=== PATIENT | male | born 1955 | race Caucasian/White ===

== ENCOUNTER 2018-10-08 20:17 | Emergency (ER) | payer BC ==
[2018-10-08] MEDS ORDERED: Sodium Chloride 0.9% 1,000 ML IV ONE ×2 (20:35→21:12)
[2018-10-08] MEDS ORDERED: Sodium Chloride 0.9% 10 ML Syringe FLUSH PRN (20:35)
--- NOTE | 2018-10-08 21:01 | EDM.PDOC ---
ED HPI GENERAL MEDICAL PROBLEM - General Stated Complaint: DIZZY, BACK CRAMPS Time Seen by Provider: 10/08/18 20:34 Source of Information: Reports: Patient History Limitations: Reports: No Limitations - History of Present Illness INITIAL COMMENTS - FREE TEXT/NARRATIVE: Patient is a 62-year-old gentleman who presents to the emergency department this evening with a complaint of dizziness, body aches, muscle cramping, and nausea. Patient states that he was out in the field all day and at approximately 1730 he was in an air-conditioned tractor and developed nausea, dizziness and upper and lower extremity muscle cramping. Patient stated he had difficulty ambulating so decided to present to ER. Patient states he did not consume a lot of liquids during the day. Patient denies chest pain, shortness of breath, abdominal pain, fall or trauma, blurry vision, headache, history of heat exhaustion or heat stroke, or fever. Onset: Today Duration: Hour(s): Location: Reports: Generalized Quality: Reports: Other (Muscle cramping) Severity: Mild Improves with: Reports: None Worsens with: Reports: Movement Context: Reports: Activity. Denies: Trauma Associated Symptoms: Reports: Nausea/Vomiting, Other (Dizziness) - Related Data Allergies Allergy/AdvReac Type Severity Reaction Status Date / Time No Known Drug Allergies Allergy Cannot Verified 10/08/18 22:10 Remember ED ROS GENERAL - Review of Systems Review Of Systems: ROS reveals no pertinent complaints other than HPI. Constitutional: Reports: No Symptoms HEENT: Reports: No Symptoms Respiratory: Reports: No Symptoms Cardiovascular: Reports: No Symptoms Endocrine: Reports: No Symptoms GI/Abdominal: Reports: Nausea. Denies: Abdominal Pain, Vomiting : Reports: No Symptoms Musculoskeletal: Reports: Arm Pain, Leg Pain Skin: Reports: No Symptoms Neurological: Reports: No Symptoms Psychiatric: Reports: No Symptoms Hematologic/Lymphatic: Reports: No Symptoms ED EXAM, GENERAL - Physical Exam Exam: See Below Exam Limited By: No Limitations General Appearance: Alert, WD/WN, No Apparent Distress Eye Exam: Bilateral Eye: Normal Inspection Nose: Normal Inspection, Normal Mucosa, No Blood Throat/Mouth: Normal Inspection, Normal Oropharynx, No Airway Compromise Head: Atraumatic, Normocephalic Neck: Normal Inspection, Supple, Non-Tender, Full Range of Motion Respiratory/Chest: No Respiratory Distress, Lungs Clear, Normal Breath Sounds, No Accessory Muscle Use, Chest Non-Tender Cardiovascular: Normal Peripheral Pulses, Regular Rate, Rhythm, No Murmur GI/Abdominal: Normal Bowel Sounds, Soft, Non-Tender, No Organomegaly, No Distention, No Abnormal Bruit, No Mass Back Exam: Normal Inspection. No: CVA Tenderness (L), CVA Tenderness (R) Extremities: Normal Inspection, No Pedal Edema Neurological: Alert, Oriented, CN II-XII Intact, Normal Cognition, No Motor/ Sensory Deficits Psychiatric: Normal Affect, Normal Mood Skin Exam: Warm, Dry, Intact, Normal Color, No Rash Lymphatic: No Adenopathy Course - Vital Signs Last Recorded V/S: Last Vital Signs Temp 98.1 F 10/08/18 20:17 Pulse 87 10/08/18 20:17 Resp 16 10/08/18 20:17 BP 164/78 H 10/08/18 20:17 Pulse Ox 94 L 10/08/18 20:17 - Orders/Labs/Meds Orders: Active Orders 24 hr Category Date Time Status Peripheral IV Care [RC] . DIRECTED Care 10/08/18 20:35 Active Sodium Chloride 0.9% @ 999 MLS/HR (1000ml) Med 10/08/18 21:12 Ordered Sodium Chloride 0.9% [Normal Saline] 1,000 ml IV .BOLUS Sodium Chloride 0.9% [Saline Flush] Med 10/08/18 20:35 Ordered 10 ml FLUSH Q8HR PRN Peripheral IV Insertion Adult [OM.PC] Routine Oth 10/08/18 20:35 Ordered Medication Orders Sodium Chloride (Normal Saline) 1,000 mls @ 999 mls/hr IV .BOLUS ONE Stop: 10/08/18 22:12 Sodium Chloride (Saline Flush) 10 ml FLUSH Q8HR PRN PRN Reason: keep vein open Labs: Laboratory Tests 10/08/18 10/08/18 10/08/18 Range/Units 18:30 18:30 21:50 WBC 10.41 H (5.00-10.00) 10^3/uL RBC 5.21 (4.50-6.00) 10^6/uL Hgb 16.7 (13.0-17.0) g/dL Hct 47.5 (40.0-52.0) % MCV 91.2 (82.0-92.0) fL MCH 32.1 H (27.0-31.0) pg MCHC 35.2 (32.0-36.0) g/dL RDW 12.4 (11.5-14.5) % Plt Count 254 (150-400) 10^3/uL MPV 9.6 (7.4-10.4) fL Immature Gran % (Auto) 0.5 (0.0-5.0) % Neut % (Auto) 64.4 (50.0-70.0) % Lymph % (Auto) 23.4 (20.0-40.0) % [place] % (Auto) 9.6 H (2.0-8.0) % Eos % (Auto) 1.7 (1.0-3.0) % Baso % (Auto) 0.4 (0.0-1.0) % Immature Gran # (Auto) 0.05 (0.00-0.50) 10^3/uL Neut # (Auto) 6.70 (2.50-7.00) 10^3/uL Lymph # (Auto) 2.44 (1.00-4.00) 10^3/uL [place] # (Auto) 1.00 H (0.10-0.80) 10^3/uL Eos # (Auto) 0.18 (0.10-0.30) 10^3/uL Baso # (Auto) 0.04 (0.00-0.10) 10^3/uL Sodium 145 (136-145) mmol/L Potassium 3.3 (3.3-5.3) mmol/L Chloride 103 (98-115) mmol/L Carbon Dioxide 24.3 (21.0-32.0) mmol/L Anion Gap 21.0 H (5-15) mmol/L BUN 46 H (6-25) mg/dL Creatinine 1.57 H (0.51-1.17) mg/dL Est Cr Clr Drug Dosing 56.72 mL/min Estimated GFR (MDRD) 45 mL/min Glucose 177 H (75 - 99) mg/dL Calcium 9.0 (8.7-10.3) mg/dL Total Bilirubin 0.3 (0.2-1.0) mg/dL AST 42 H (15-37) U/L ALT 38 (12-78) U/L Alkaline Phosphatase 86 (46-116) IU/L Creatine Kinase 826 H* (26-276) U/L Total Protein 7.5 (6.4-8.2) g/dL Albumin 3.97 (3.00-4.80) g/dL Specimen Type . Urine Color Yellow (YELLOW) Urine Appearance Clear (CLEAR) Urine pH 5.5 (5.0-9.0) Ur Specific [place] >= 1.030 (1.005-1.030) Urine Protein Negative (NEGATIVE) mg/dL Urine Glucose (UA) Negative (NEGATIVE) mg/dL Urine Ketones Trace H (NEGATIVE) mg/dL Urine Occult Blood Negative (NEGATIVE) Urine Nitrite Negative (NEGATIVE) Urine Bilirubin Negative (NEGATIVE) Urine Urobilinogen 0.2 (0.2-1.0) E.U./dL Ur Leukocyte Esterase Negative (NEGATIVE) Meds: Medications Generic Name Dose Route Start Last Admin Trade Name Freq PRN Reason Stop Dose Admin Sodium Chloride 1,000 mls @ 999 mls/hr 10/08/18 21:12 Normal Saline IV 10/08/18 22:12 .BOLUS ONE Sodium Chloride 10 ml 10/08/18 20:35 Saline Flush FLUSH Q8HR PRN keep vein open Discontinued Medications Generic Name Dose Route Start Last Admin Trade Name Freq PRN Reason Stop Dose Admin Sodium Chloride 1,000 mls @ 999 mls/hr 10/08/18 20:35 Normal Saline IV 10/08/18 21:35 .BOLUS ONE - Re-Assessments/Exams Free Text/Narrative Re-Assessment/Exam: 10/08/18 22:10 Patient afebrile, vital signs stable, dizziness, and muscle cramping, resolved. Discussed with patient the mild rhabdomyolysis condition and need to be extremely cautious in hot weather and consuming enough liquids. Patient will follow-up with PCP Departure - Departure Time of Disposition: 22:11 Disposition: Home, Self-Care 01 Condition: Good Clinical Impression: Dehydration, Muscle cramps Rhabdomyolysis Qualifiers: Rhabdomyolysis type: non-traumatic Qualified Code(s): M62.82 - Rhabdomyolysis - Discharge Information Instructions: Muscle Cramps and Spasms, Dehydration, Adult, [id number], Rehydration, Adult, Rhabdomyolysis Referrals: Darren Vargas PA-C [Primary Care Provider] - Additional Instructions: Follow-up with PCP in one to 2 days. Return to emergency department sooner if symptoms continue or worsen. - My Orders Last 24 Hours: My Active Orders 10/08/18 20:35 Peripheral IV Care [RC] . DIRECTED Sodium Chloride 0.9% [Saline Flush] 10 ml FLUSH Q8HR PRN Peripheral IV Insertion Adult [OM.PC] Routine 10/08/18 21:12 Sodium Chloride 0.9% @ 999 MLS/HR (1000ml) Sodium Chloride 0.9% [Normal Saline] 1,000 ml IV .BOLUS - Assessment/Plan Last 24 Hours: My Active Orders 10/08/18 20:35 Peripheral IV Care [RC] . DIRECTED Sodium Chloride 0.9% [Saline Flush] 10 ml FLUSH Q8HR PRN Peripheral IV Insertion Adult [OM.PC] Routine 10/08/18 21:12 Sodium Chloride 0.9% @ 999 MLS/HR (1000ml) Sodium Chloride 0.9% [Normal Saline] 1,000 ml IV .BOLUS Assessment:: Dehydration Plan: Follow-up with PCP
== END 2018-10-08 22:55 | disposition home or self-care (01) ==
LOC: KA.ED 20:17
DX: E86.0 Dehydration (principal); M62.82 Rhabdomyolysis
CPT/HCPCS: 36415; 80053; 81003; 82550; 85025; 96360; 96361; 99283-25; J7030